=== PATIENT | male | born 1975 | race Caucasian/White ===

== ENCOUNTER 2016-05-05 08:01 | Outpatient (CLI) | payer OTHER ==
--- NOTE | 2016-05-05 09:04 | DIAGNOSTIC IMAGING REPORT ---
PROCEDURE: US SOFT TISSUE THYR/NECK/HEAD INDICATION: SWELLING,MASS OR LUMP OF NECK TECHNIQUE: Mehta scale and color Doppler sonographic images of the neck posteriorly were obtained. COMPARISON: None. FINDINGS: There is a 5.4 x 4.9 x 1.3 cm sharply marginated avascular echogenic solid mass 6 mm deep to the skin surface, overlying the approximate C7 spinous process. No other findings. IMPRESSION: 1. Echogenic solid mass overlying the approximate C7 spinous process suggestive of a lipoma.
== END 2016-05-05 23:00 ==
LOC: US SRH 08:01
DX: R22.1 Localized swelling, mass and lump, neck (principal)